=== PATIENT | male | born 1995 | race African-American/Black ===

== ENCOUNTER 2024-07-01 22:17 | Emergency (ER) | payer SELFPAY ==
[~2024-07-01] VITALS: Ht 170.2 cm; Wt 71.0 kg
[2024-07-01 22:33] VITALS: BP 126/80; PULSE 102; RESP 12; TEMP 98.6; O2SAT 99
[2024-07-01 23:38] LABS: HEMATOCRIT 48.2 % (42.0-52.0); HEMOGLOBIN 16.1 g/dL (14.0-18.0); MEAN CORPUSCULAR HEMOGLOBIN 30.8 pg (28.0-32.0); MEAN CORPUSCULAR HGB CONC 33.5 g/dL (31.0-37.0); MEAN CORPUSCULAR VOLUME 92.2 fL (80.0-94.0); PLATELET 322 x1000/uL (130-400); RED BLOOD CELL COUNT 5.23 mill/uL (4.7-6.1); RED CELL DISTRIBUTION WIDTH 13.7 % (11.6-14.6); WHITE BLOOD COUNT 9.5 x1000/uL (4.5-11.0)
[2024-07-01 23:42] LABS: CHLORIDE 114 mEq/L (98-107); POTASSIUM 3.8 mEq/L (3.5-5.1); SODIUM 147 mEq/L (136-145)
[2024-07-01 23:43] LABS: CARBON DIOXIDE 19 mEq/L (21-32)
[2024-07-01 23:44] LABS: CALCIUM 8.4 mg/dL (8.7-10.4)
[2024-07-01 23:48] LABS: CREATININE 0.7 mg/dL (0.6-1.3); GLUCOSE 125 mg/dL (70-105)
[2024-07-01 23:49] LABS: UREA NITROGEN BLOOD 10 mg/dL (9-23)
== END 2024-07-02 03:05 | disposition home or self-care (01) ==
LOC: ER 22:17
DX: F10.129 Alcohol abuse with intoxication, unspecified (principal); Y90.9 Presence of alcohol in blood, level not specified
CPT/HCPCS: 36415; 71045; 80048; 80320; 85027; 99284; G0480